=== PATIENT | male | born 1995 | race Asian ===

== ENCOUNTER 2018-04-03 19:18 | Emergency (ER) | payer OTHER ==
[2018-04-03] MEDS ORDERED: Sodium Chloride 0.9% 10 ML Syringe FLUSH PRN (19:30)
[2018-04-03] MEDS ORDERED: Sodium Chloride 0.9% 1,000 ML IV SCH (19:30)
[2018-04-03] MEDS ORDERED: Ondansetron 4 MG/2 ML SDV IVPUSH ONE (19:49)
[2018-04-03] MEDS ORDERED: Ketorolac 30 MG/ML SDV IVPUSH ONE (19:49)
[2018-04-03] MEDS ORDERED: Acetaminophen 325 MG Tab PO ONE (19:50)
[2018-04-03] MEDS ORDERED: LORazepam 2 MG/ML SDV IVPUSH ONE (19:57)
[2018-04-03 20:03] LABS: CHLORIDE,CL 103 mmol/L (98-107); SODIUM,NA 142 mmol/L (136-145)
--- NOTE | 2018-04-03 20:04 | EDM.PDOC ---
ED HPI GENERAL MEDICAL PROBLEM - General Chief Complaint: Fever Stated Complaint: HIGH FEVER, CHILLS Time Seen by Provider: 04/03/18 19:43 Source of Information: Reports: Patient, Other (friends) History Limitations: Reports: Language Barrier - History of Present Illness INITIAL COMMENTS - FREE TEXT/NARRATIVE: Patient brought in by Reva EnSol to be seen for fever/not feeling well. He is from [facility] and there is some language barrier present. Friends also feel that patient is hallucinating a bit, and patient does not wish to stay and says that he wants to go home and sleep in his apartment. Symptoms apparently began yesterday and have consisted of fever, and abdominal discomfort. One episode of emesis. No reported bowel changes. Patient feels that he is more short of breath but denies cough or other respiratory changes. Now has headache. No runny nose/sore throat/ENT complaints. No rashes. Denies insect bites. No one else sick that he has been in contact with. Has roommate. Works on large farm. Nonsmoker. Occasional ETOH. - Related Data Allergies Allergy/AdvReac Type Severity Reaction Status Date / Time No Known Allergies Allergy Verified 04/03/18 19:25 Home Meds: Home Meds Non-Formulary Medication [NF Drug] 2 tab PO ASDIRECTED PRN 04/03/18 [History] Past Medical History - Past Health History Medical/Surgical History: Denies Medical/Surgical History ED ROS GENERAL - Review of Systems Review Of Systems: See Below Constitutional: Reports: Fever, Chills, Malaise, Weakness, Fatigue, Diaphoresis , Decreased Appetite HEENT: Reports: No Symptoms Respiratory: Reports: Shortness of Breath. Denies: Wheezing, Pleuritic Chest Pain, Cough, Sputum, Hemoptysis Cardiovascular: Reports: No Symptoms GI/Abdominal: Reports: Abdominal Pain, Decreased Appetite, Nausea, Vomiting. Denies: Black Stool, Bloody Stool, Constipation, Diarrhea, Difficulty Swallowing , Distension, Hematemesis, Hematochezia : Reports: No Symptoms Musculoskeletal: Reports: No Symptoms Skin: Reports: No Symptoms Neurological: Reports: Confusion (patient denies issues but friends familiar with him feel that he is not acting quite himself. ), Headache Psychiatric: Reports: No Symptoms Hematologic/Lymphatic: Reports: No Symptoms ED EXAM, GENERAL - Physical Exam Exam: See Below Exam Limited By: No Limitations General Appearance: Alert, WD/WN, Other (appears uncomfortable, sweating) Eye Exam: Bilateral Eye: EOMI, PERRL Ears: Normal External Exam, Normal Canal, Hearing Grossly Normal, Normal TMs Nose: Normal Inspection Throat/Mouth: Normal Inspection, Normal Lips, Normal Teeth, Normal Gums, Normal Oropharynx, Normal Voice, No Airway Compromise Head: Atraumatic, Normocephalic Neck: Normal Inspection, Supple, Non-Tender, Full Range of Motion. No: Lymphadenopathy (L), Lymphadenopathy (R) Respiratory/Chest: No Respiratory Distress, Lungs Clear, Normal Breath Sounds, No Accessory Muscle Use, Chest Non-Tender Cardiovascular: Normal Peripheral Pulses, No Edema, No Murmur, Tachycardia Peripheral Pulses: 2+: Radial (L), Radial (R), Dorsalis Pedis (L), Dorsalis Pedis (R) GI/Abdominal: Soft, No Distention, Tender (patient complains of tenderness with palpation of all 4 quadrants), Abnormal Bowel Sounds (decreased). No: Guarding , Rigid, Rebound (Male) Exam: Deferred Rectal (Males) Exam: Deferred Back Exam: Normal Inspection. No: CVA Tenderness (L), CVA Tenderness (R), Muscle Spasm, Paraspinal Tenderness, Vertebral Tenderness Extremities: Normal Range of Motion, Non-Tender, No Pedal Edema, Normal Capillary Refill. No: Normal Inspection Neurological: Alert, Oriented, CN II-XII Intact, Normal Gait, No Motor/Sensory Deficits, Inattentive Psychiatric: Anxious Skin Exam: Warm, Diaphoretic Course - Vital Signs Last Recorded V/S: Last Vital Signs Temp 37.1 C 04/03/18 22:01 Pulse 148 H 04/03/18 20:24 Resp 14 04/03/18 21:55 BP 103/53 L 04/03/18 21:55 Pulse Ox 100 04/03/18 21:55 - Orders/Labs/Meds Orders: Active Orders 24 hr Category Date Time Status Peripheral IV Care [RC] . DIRECTED Care 04/03/18 19:30 Active RT Aerosol Therapy [RC] ASDIRECTED Care 04/03/18 20:40 Active Chest 2V [CR] Stat Exams 04/03/18 19:50 Taken CULTURE BLOOD [BC] Stat Lab 04/03/18 19:30 Received CULTURE BLOOD [BC] Stat Lab 04/03/18 20:10 Received CULTURE STREP A CONFIRMATION [] Stat Lab 04/03/18 19:35 Results STREP SCRN A RAPID W CULT CONF [RM] Stat Lab 04/03/18 19:35 Results UA W/MICROSCOPIC [URIN] Stat Lab 04/03/18 19:29 Ordered Sodium Chloride 0.9% [Normal Saline] 1,000 ml Med 04/03/18 19:30 Active IV ASDIRECTED Sodium Chloride 0.9% [Saline Flush] Med 04/03/18 19:30 Active 10 ml FLUSH ASDIRECTED PRN Blood Culture x2 Reflex Set [OM.PC] Stat Oth 04/03/18 20:08 Ordered Peripheral IV Insertion Adult [OM.PC] Routine Oth 04/03/18 19:30 Ordered Medication Orders Sodium Chloride (Normal Saline) 1,000 mls @ 999 mls/hr IV ASDIRECTED KAMRON Last Admin: 04/03/18 19:41 Dose: 999 mls/hr Sodium Chloride (Saline Flush) 10 ml FLUSH ASDIRECTED PRN PRN Reason: Keep Vein Open Last Admin: 04/03/18 19:55 Dose: 10 ml Labs: Laboratory Tests 04/03/18 04/03/18 04/03/18 Range/Units 19:00 19:30 19:30 WBC 9.4 (4.0-10.2) K/uL RBC 5.26 (4.33-5.41) M/uL Hgb 16.4 (13.1-16.8) g/dL Hct 46.3 (39.0-49.0) % MCV 88.0 (84.0-98.0) fL MCH 31.2 (28.2-33.3) pg MCHC 35.4 (31.7-36.0) g/dL RDW 12.1 (11.2-14.1) % Plt Count 190 (150-350) K/uL Neut % (Auto) 83.7 H (45.0-80.0) % Lymph % (Auto) 13.4 (10.0-50.0) % Ferry % (Auto) 2.1 (2.0-14.0) % Eos % (Auto) 0.4 (0.0-5.0) % Baso % (Auto) 0.4 (0.0-2.0) % Neut # (Auto) 7.83 H (1.40-7.00) K/uL Lymph # (Auto) 1.26 (0.50-3.50) K/uL Ferry # (Auto) 0.20 (0.00-1.00) K/uL Eos # (Auto) 0.04 (0.00-0.50) K/uL Baso # (Auto) 0.04 (0.00-0.20) K/uL Sodium 142 (136-145) mmol/L Potassium 4.0 (3.5-5.1) mmol/L Chloride 103 (98-107) mmol/L Carbon Dioxide 23.0 (21.0-32.0) mmol/L BUN 18 (7-18) mg/dL Creatinine 1.19 H (0.51-1.17) mg/dL Est Cr Clr Drug Dosing TNP Estimated GFR (MDRD) > 60 mL/min Glucose 91 (74-106) mg/dL Lactic Acid 3.0 H (0.4-2.0) mmol/L Calcium 9.3 (8.5-10.1) mg/dL Total Bilirubin 0.9 (0.2-1.0) mg/dL AST 36 (15-37) U/L ALT 37 (12-78) U/L Alkaline Phosphatase 91 (46-116) IU/L Total Protein 8.1 (6.4-8.2) g/dL Albumin 4.2 (3.4-5.0) g/dL Meds: Medications Generic Name Dose Route Start Last Admin Trade Name Freq PRN Reason Stop Dose Admin Sodium Chloride 1,000 mls @ 999 mls/hr 04/03/18 19:30 04/03/18 19:41 Normal Saline IV 999 mls/hr ASDIRECTED KAMRON Administration Sodium Chloride 10 ml 04/03/18 19:30 04/03/18 19:55 Saline Flush FLUSH 10 ml ASDIRECTED PRN Administration Keep Vein Open Discontinued Medications Generic Name Dose Route Start Last Admin Trade Name Freq PRN Reason Stop Dose Admin Acetaminophen 650 mg 04/03/18 19:50 04/03/18 20:11 Tylenol PO 04/03/18 19:51 650 mg NOW ONE Administration Albuterol/Ipratropium 3 ml 04/03/18 20:40 09/26/18 20:43 Duoneb 3.0-0.5 Mg/3 Ml NEB 04/03/18 20:41 3 ml ONETIME ONE Administration Sodium Chloride 1,000 mls @ 999 mls/hr 04/03/18 21:00 04/03/18 20:58 Normal Saline IV 04/03/18 22:00 999 mls/hr .BOLUS ONE Administration Ketorolac Tromethamine 30 mg 04/03/18 19:49 04/03/18 19:54 Toradol IVPUSH 04/03/18 19:50 30 mg ONETIME ONE Administration Lorazepam 1 mg 04/03/18 19:57 04/03/18 20:00 Ativan IVPUSH 04/03/18 19:58 1 mg ONETIME ONE Administration Ondansetron HCl 4 mg 04/03/18 19:49 04/03/18 19:54 Zofran IVPUSH 04/03/18 19:50 4 mg ONETIME ONE Administration - Radiology Interpretation Free Text/Narrative:: Chest xray did not show acute infiltrates/pulmonary changes - Re-Assessments/Exams Free Text/Narrative Re-Assessment/Exam: 04/03/18 20:24 CBC/Chem/blood cultures/rapid strep/lactic acid/influenza/UA requested. WBC normal. Lactic acid elevated to 3.0 Chemistry unremarkable except for mild increase CR, likely secondary to mild dehydration/decreased PO intake over the last few days. Influenza and Rapid strep negative. Free Text/Narrative Re-Assessment/Exam: 04/03/18 22:28 Patient feels much better. Afebrile. Improved pulse rate. Urinated. Urine dip showed ketones but no sign of infection. Discussed admitting observation given the high fever he experienced as well as elevated lactic acidosis. Patient refused and would like to go home. Again, WBC normal. Suspect viral syndrome given GI discomfort, headache, and fever. Chest heaviness improved. Normal respiratory rate and O2 sats noted. Precautions reviewed prior to discharge. To stay hydrated and take Tylenol or Ibuprofen regularly to help with avoiding another episode of high fever. To watch for changes and to follow up as needed. To follow up tomorrow if no overall improvement is noted. Patient is agreeable with this plan. Departure - Departure Time of Disposition: 22:32 Disposition: Home, Self-Care 01 Condition: Good Clinical Impression: Acute viral syndrome Fever Qualifiers: Fever type: unspecified Qualified Code(s): R50.9 - Fever, unspecified - Discharge Information *PRESCRIPTION DRUG MONITORING PROGRAM REVIEWED*: Not Applicable *COPY OF PRESCRIPTION DRUG MONITORING REPORT IN PATIENT INA: Not Applicable Instructions: Fever, Adult, [id number] Forms: ED Department Discharge, ED Return to Work/School Form Additional Instructions: Take either Tylenol or Ibuprofen regularly over the next 24 hours to help avoid another high fever. Drink plenty of water and stay well hydrated. No work for 48 hours. Watch for changes and any new symptoms. If there are concerns, get rechecked. If your symptoms that you had return, or you are not feeling better within the next day or so, get rechecked either at ER or clinic. - My Orders Last 24 Hours: My Active Orders 04/03/18 19:29 UA W/MICROSCOPIC [URIN] Stat 04/03/18 19:30 Peripheral IV Care [RC] . DIRECTED CULTURE BLOOD [BC] Stat Sodium Chloride 0.9% [Normal Saline] 1,000 ml IV ASDIRECTED Sodium Chloride 0.9% [Saline Flush] 10 ml FLUSH ASDIRECTED PRN Peripheral IV Insertion Adult [OM.PC] Routine 04/03/18 19:35 CULTURE STREP A CONFIRMATION [RM] Stat STREP SCRN A RAPID W CULT CONF [RM] Stat 04/03/18 19:50 Chest 2V [CR] Stat 04/03/18 20:08 Blood Culture x2 Reflex Set [OM.PC] Stat 04/03/18 20:10 CULTURE BLOOD [BC] Stat 04/03/18 20:40 RT Aerosol Therapy [RC] ASDIRECTED - Assessment/Plan Last 24 Hours: My Active Orders 04/03/18 19:29 UA W/MICROSCOPIC [URIN] Stat 04/03/18 19:30 Peripheral IV Care [RC] . DIRECTED CULTURE BLOOD [BC] Stat Sodium Chloride 0.9% [Normal Saline] 1,000 ml IV ASDIRECTED Sodium Chloride 0.9% [Saline Flush] 10 ml FLUSH ASDIRECTED PRN Peripheral IV Insertion Adult [OM.PC] Routine 04/03/18 19:35 CULTURE STREP A CONFIRMATION [RM] Stat STREP SCRN A RAPID W CULT CONF [RM] Stat 04/03/18 19:50 Chest 2V [CR] Stat 04/03/18 20:08 Blood Culture x2 Reflex Set [OM.PC] Stat 04/03/18 20:10 CULTURE BLOOD [BC] Stat 04/03/18 20:40 RT Aerosol Therapy [RC] ASDIRECTED
[2018-04-03] MEDS ORDERED: Albuterol/Ipratropium 3.0-0.5 MG/3 ML Neb Soln NEB ONE (20:40)
[2018-04-03] MEDS ORDERED: Sodium Chloride 0.9% 1,000 ML IV ONE (21:00)
== END 2018-04-03 22:45 | disposition home or self-care (01) ==
LOC: LL.ED 19:18
DX: B34.9 Viral infection, unspecified (principal)
CPT/HCPCS: 36415; 71046; 80053; 81001; 83605; 85025; 87040; 87081; 87430; 87804; 94640; 96361; 96374; 96375; 99284; A9270-GY; J1885; J2060; J2405; J7030; J7050; J7620-GY